=== PATIENT | male | born 1955 | race Caucasian/White ===

== ENCOUNTER → 2016-10-30 | Outpatient (CLI) | payer OTHER ==
[~2016-10-30] VITALS: Ht 180.3 cm; Wt 91.3 kg
[~2016-10-30] MED LIST: CELEBREX 200 M200 MG PO; HYDROCODON-ACE1 EAC5 PO; IBUPROFEN 200200 M1 PO
--- NOTE | ~2016-10-30 | HPC ---
[facility] [place] [address] PAIN MANAGEMENT CONSULTATION Name: MAXI MENSAH Room #: REG BEATRICE Betts#: [id number] Admission: 10/30/16 Attend Phys: Danial Alejandre MD Discharge: Date of : 59 Report #: [id number] THIS REPORT FOR: //name// CC: Danial Mcgrath DO DATE OF SERVICE: 10/30/2016 Followup visit for lumbar radiculopathy. The patient returns to the pain clinic today for an epidural injection. He has been doing a lot of work around his son's house. 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 His multiple activities are often 2 episodes of low back pain with radiculopathy and today called reporting that he is having extreme difficulty moving around and walking. He has an upcoming trip planned to be involved in autograph session in [place] with the [employer] and he is hopeful that we can provide some pain relief as we have in the past with the epidural injections. MEDICATIONS: Hydrocodone and ibuprofen. ALLERGIES: None. PAST MEDICAL HISTORY: Remarkable for degenerative spine disease with x-ray evidence of vacuum changes present at L4-L5 and L5-S1 disk osteophyte and disk narrowing present throughout the lumbar spine. There is facet arthropathy bilaterally at L4-L5 and L5-S1 resulting in radicular symptoms. PHYSICAL EXAMINATION: The patient is a very fit appearing 61-year-old moves from sitting to standing position, walks today with antalgic features. He has pain with forward flexion, extension, rotation of the lumbar spine and pain with tenderness across the low back. Straight leg raising bilaterally causes pain. It is much worse today on the right. Pain follows in the L5-S1 distribution. IMPRESSION: Chronic low back pain with radiculopathy related to degenerative disease at L4-L5 and L5-S1. The patient has had excellent response to epidural injections. Last injection was over 6 months ago. PLAN: Proceed with epidural injection under fluoroscopic guidance. PROCEDURE: He was taken to fluoroscopic suite, placed prone, skin prepped with ChloraPrep. Skin anesthetized over L4-L5. A 20-gauge Tuohy epidural needle advanced in the epidural space with loss of resistance. There was no blood or [address] [address] PAIN MANAGEMENT CONSULTATION Name: MAXI MENSAH Room #: REG [facility]#: [id number] Admission: 10/30/16 Attend Phys: Danial Alejandre MD Discharge: Date of : 59 Report #: [id number] CSF aspirated. 1 mL of Omnipaque injected. Good spread of dye observed in the epidural space followed by 3 mL of 0.5% lidocaine mixed with 80 mg of triamcinolone. He tolerated the procedure well and was observed for 45 minutes and discharged. Pain was improved at discharge and we will see him only as needed. By: [id number] Danial Alejandre MD /nt
[2016-10-30 11:20] VITALS: BP 147/87
== END ==
LOC: PAIN 09:38
DX: M54.16 Radiculopathy, lumbar region (principal); G89.29 Other chronic pain; M51.36 Other intervertebral disc degeneration, lumbar region

== ENCOUNTER → 2019-07-18 | Outpatient (CLI) | payer OTHER | LOC: MRI 06:40 | DX: M51.46 Schmorl's nodes, lumbar region (principal); M47.816 Spondylosis without myelopathy or radiculopathy, lumbar region; M51.44 Schmorl's nodes, thoracic region; M51.26 Other intervertebral disc displacement, lumbar region; M48.01 Spinal stenosis, occipito-atlanto-axial region; M48.061 Spinal stenosis, lumbar region without neurogenic claudication; M12.88 Other specific arthropathies, not elsewhere classified, other specified site ==

== ENCOUNTER → 2019-07-25 | Outpatient (CLI) | payer OTHER ==
[~2019-07-25] VITALS: Ht 180.3 cm; Wt 89.4 kg
[2019-07-25 08:43] VITALS: BP 170/90
--- NOTE | 2019-07-25 08:57 | NUR ---
Pain Clinic Assessment: 1. History of Osteoarthritis: Not Applicable History of Rheumatoid Arthritis: Not Applicable 2. Height: 5 ft. 11 in. 180.3 cm. Weight: 197.0 lb. oz. 89.359 kg. Patient's BMI: 27.5 3. Vital Signs: BP: 170/90 Pulse: 72 Resp: 16 Temp: 02 Sat: 100 ECG Mon: 4. Pain Intensity: 7 5. Fall Risk: Dizziness: N Needs help standing or walking: N Fallen in the last 3 months: N Fall risk comments: 6. Patient on Blood Thinner: None 7. History of Hypertension: N 8. Opioid Therapy greater than 6 weeks: N Opiate Contract Signed: 9. Risk Assessment Tool Provided: 10. Functional Assessment Tool: 11. Recreational Drug Use: Never Drug Type: Tobacco Use: Never Smoker Tobacco Type: Amount or Packs/day: How Many Years: Alcohol Use: Yes Frequency: Quant:
--- NOTE | 2019-07-28 14:31 | HPC ---
[facility] [place] [address] PAIN MANAGEMENT CONSULTATION Name: MAXI MENSAH Room #: REG BEATRICE NajeraJoyce#: [id number] Admission: 07/25/19 Attend Phys: Danial Alejandre MD Discharge: Date of : 59 Report #: [id number] THIS REPORT FOR: cc: Aren Mcgrath,Danial East MD ~ THIS REPORT FOR: //name// CC: Danial Mcgrath DO DATE OF SERVICE: 07/25/2019 Followup visit for lumbar spondylosis with mild radiculopathy. The patient returns to pain clinic today for an epidural injection. I last saw him on 10/30/2016. Over the course of the last 5-6 years, he has had an occasional epidural when necessary. I think I gave him his first injection around 2006 in the sacroiliac joint. He has also had some cervical radiculopathy, also responsive to epidural injections. 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 He tends to really push it hard and he enjoys the work. It does occasionally flare and he is here today for a flare that has been now ongoing for about a month. Most of the pain is in his back, but it can at times radiate into his hips. He is fortunate that he does not have classic radicular symptoms all the way down into the leg and I do not think he has a lot of nerve impingement. I did order an MRI for him. It has been sometime since we have had one. The MRI from 07/18/2019 is consistent with a hard work on lumbar spine! There is extensive multilevel spondylosis. There is severe disk desiccation at L3-L4 with some broad-based posterior bulging and a synovial cyst projecting medial from the right facet joint with moderate to severe facet arthrosis and thickening of the ligamentum flavum at that level. This results in subarticular and right paracentral canal stenosis with effacement of the right L4 and L5 nerve roots. Again, there is not significant symptomatology from this nerve root impingement, but I do believe it is playing some role in his pain. There is also without question some facet generated pain. At the L5-S1 level, there is also significant disk desiccation and facet arthrosis, although it seems to be worse on the left on the L5-S1 level. MEDICATIONS: None. [address] [address] PAIN MANAGEMENT CONSULTATION Name: ISRATANVIRMAXI Room #: REG [facility] Alpesh#: [id number] Admission: 07/25/19 Attend Phys: Danial Alejandre MD Discharge: Date of : 59 Report #: [id number] ALLERGIES: None. PHYSICAL EXAMINATION: Fit appearing 64-year-old. Moves independently from sitting to standing position, but has some difficulty standing straight. He has antalgic features to his gait. He has pain with flexion, extension and rotation. Straight leg raising reproduces pain, both in the back and a little bit into the right paravertebral region and into the hip consistent with some mild radiculopathy. IMPRESSION: Lumbar radiculopathy, lumbar spondylosis with multi-joint facet arthropathy. Pain is mostly to the right. PLAN: Epidural steroid injection under fluoroscopic guidance, L3-L4 right paramedian. Procedure understood by the patient. He was taken to fluoroscopic suite for treatment after informed consent. Skin was prepped with ChloraPrep. Skin anesthetized and a 20-gauge Tuohy epidural needle advanced in the epidural space to the right of midline on the first attempt. There was no blood or CSF aspirated. A 1 mL of Omnipaque was injected and excellent epidurogram was achieved. It was then followed by a total of 3 mL of 0.5% lidocaine mixed with 80 mg of triamcinolone. He tolerated the procedure well and there were no complications. Followup visit scheduled in the pain clinic on an as needed basis in the future. No medications were ordered. <ELECTRONICALLY SIGNED> By: Danial Alejandre MD 07/28/19 [id number] Danial Alejandre MD /nt
== END | disposition home or self-care (01) ==
LOC: PAIN 06:31
DX: M47.26 Other spondylosis with radiculopathy, lumbar region (principal); G89.29 Other chronic pain; Z98.890 Other specified postprocedural states

== ENCOUNTER → 2020-01-17 | Outpatient (CLI) | payer OTHER ==
[~2020-01-17] MED LIST changes: +HYDROCODONE-AP1 EA11 PO; +MELOXICAM7.5 MG PO
== END ==
LOC: MRI 09:28
PROVIDERS: ATTEND Anesthesiology Pain Medicine
DX: M51.16 Intervertebral disc disorders with radiculopathy, lumbar region (principal); M25.78 Osteophyte, vertebrae; M48.061 Spinal stenosis, lumbar region without neurogenic claudication; M47.26 Other spondylosis with radiculopathy, lumbar region

== ENCOUNTER → 2020-01-19 | Outpatient (CLI) | payer OTHER ==
[~2020-01-19] VITALS: Ht 180.3 cm; Wt 85.1 kg
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
[2020-01-19 12:57] VITALS: BP 158/106
--- NOTE | 2020-01-19 13:16 | NUR ---
Pain Clinic Assessment: 1. History of Osteoarthritis: BACK NECK History of Rheumatoid Arthritis: Not Applicable 2. Height: 5 ft. 11 in. 180.3 cm. Weight: 187.6 lb. oz. 85.095 kg. Patient's BMI: 26.2 3. Vital Signs: BP: 158/106 Pulse: 80 Resp: 14 Temp: 02 Sat: 98 ECG Mon: 4. Pain Intensity: 7 5. Fall Risk: Dizziness: N Needs help standing or walking: N Fallen in the last 3 months: N Fall risk comments: 6. Patient on Blood Thinner: None 7. History of Hypertension: N 8. Opioid Therapy greater than 6 weeks: N Opiate Contract Signed: 9. Risk Assessment Tool Provided: 10. Functional Assessment Tool: 11. Recreational Drug Use: Never Drug Type: Tobacco Use: Never Smoker Tobacco Type: Amount or Packs/day: How Many Years: Alcohol Use: Yes Frequency: Quant:
== END ==
LOC: PAIN 06:52
PROVIDERS: ATTEND Anesthesiology Pain Medicine
DX: M47.816 Spondylosis without myelopathy or radiculopathy, lumbar region (principal)

== ENCOUNTER → 2020-01-30 | Outpatient (CLI) | payer OTHER ==
[~2020-01-30] VITALS: Ht 182.9 cm; Wt 84.2 kg
--- NOTE | ~2020-01-30 | HPC ---
[address] [address] PAIN MANAGEMENT CONSULTATION Name: MAXI MENSAH Room #: REG BEATRICE Alpesh#: [id number] Admission: 01/30/20 Attend Phys: Danial Alejandre MD Discharge: Date of : 59 Report #: [id number] THIS REPORT FOR: cc: Aren Mcgrath,Danial East MD ~ CC: Danial Mcgrath DATE OF SERVICE: 01/30/2020 Followup visit for lumbar spondylosis with radiculopathy. The patient is here today for an epidural injection. I saw him last on 01/19/2020. He was given some anti-inflammatories for the spondylitic component to his pain, but the meloxicam was poorly tolerated, upset his stomach. He went back to ibuprofen. Over the weekend, his pain was worse and he had increasing pain that radiated from his back down into his buttocks. He was out swimming with his grandkids, can barely make it back to the dock due to the pain radiation. We discussed the possibility of an epidural injection at his last visit. He has always responded very favorably to epidural injections performed at both L4-L5 and L3-L4. We elected today to proceed with an injection. IMPRESSION: Lumbar radiculopathy with severe lumbar spondylosis, degenerative disk disease, discogenic pain. PROCEDURE: Epidural steroid injection under fluoroscopic guidance. After informed consent, he was taken to the fluoroscopic suite, placed prone, skin prepped with ChloraPrep. Skin anesthetized over the L4-L5 interspace. A 20-gauge Tuohy epidural needle advanced with first attempt in the epidural space with loss of resistance technique. There was no blood or CSF aspirated. A 1 mL of Omnipaque injected. Good spread of dye observed in the epidural space followed by 3 mL of 0.5% lidocaine mixed with 80 mg of triamcinolone. He tolerated the procedure well and was observed for 45 minutes and discharged. Followup visit planned as needed. By: [id number] Danial Alejandre MD /nt
[2020-01-30 12:35] VITALS: BP 159/115
--- NOTE | 2020-01-30 12:42 | NUR ---
Pain Clinic Assessment: 1. History of Osteoarthritis: BACK NECK History of Rheumatoid Arthritis: Not Applicable 2. Height: 6 ft. 0 in. 182.9 cm. Weight: 185.6 lb. oz. 84.188 kg. Patient's BMI: 25.2 3. Vital Signs: BP: 159/115 Pulse: 73 Resp: 18 Temp: 02 Sat: 99 ECG Mon: 4. Pain Intensity: 6 5. Fall Risk: Dizziness: N Needs help standing or walking: N Fallen in the last 3 months: N Fall risk comments: 6. Patient on Blood Thinner: None 7. History of Hypertension: N 8. Opioid Therapy greater than 6 weeks: N Opiate Contract Signed: 9. Risk Assessment Tool Provided: 10. Functional Assessment Tool: 11. Recreational Drug Use: Never Drug Type: Tobacco Use: Never Smoker Tobacco Type: Amount or Packs/day: How Many Years: Alcohol Use: Yes Frequency: Quant:
== END | disposition home or self-care (01) ==
LOC: PAIN 09:23
PROVIDERS: ATTEND Anesthesiology Pain Medicine
DX: M51.16 Intervertebral disc disorders with radiculopathy, lumbar region (principal); M47.26 Other spondylosis with radiculopathy, lumbar region; G89.29 Other chronic pain; Z98.890 Other specified postprocedural states; Z79.899 Other long term (current) drug therapy

== ENCOUNTER → 2020-04-17 | Outpatient (CLI) | payer OTHER ==
[~2020-04-17] VITALS: Ht 180.3 cm; Wt 84.8 kg
[~2020-04-17] MED LIST changes: +DIAZEPAM 5 MG5 M1 PO
[2020-04-17 11:24] VITALS: BP 164/112
--- NOTE | 2020-04-17 11:32 | NUR ---
Pain Clinic Assessment: 1. History of Osteoarthritis: BACK NECK History of Rheumatoid Arthritis: Not Applicable 2. Height: 5 ft. 11 in. 180.3 cm. Weight: 187.0 lb. oz. 84.823 kg. Patient's BMI: 26.1 3. Vital Signs: BP: 164/112 Pulse: 83 Resp: 16 Temp: 02 Sat: 99 ECG Mon: 4. Pain Intensity: 9.5 5. Fall Risk: Dizziness: N Needs help standing or walking: N Fallen in the last 3 months: N Fall risk comments: 6. Patient on Blood Thinner: None 7. History of Hypertension: N 8. Opioid Therapy greater than 6 weeks: N Opiate Contract Signed: 9. Risk Assessment Tool Provided: LOW-0 10. Functional Assessment Tool: 11. Recreational Drug Use: Never Drug Type: Tobacco Use: Never Smoker Tobacco Type: Amount or Packs/day: How Many Years: Alcohol Use: Yes Frequency: Quant:
== END | disposition home or self-care (01) ==
LOC: PAIN 06:52
PROVIDERS: ATTEND Anesthesiology Pain Medicine
DX: M54.16 Radiculopathy, lumbar region (principal); G89.29 Other chronic pain; Z98.890 Other specified postprocedural states; Z79.899 Other long term (current) drug therapy